=== PATIENT | male | born 1945 | race Caucasian/White ===

== ENCOUNTER → 2016-11-28 | Day surgery (SDC) | payer MEDICARE, OTHER ==
[~2016-11-28] VITALS: Ht 182.9 cm; Wt 181.9 kg
[~2016-11-28] MED LIST: CLARITIN10 MG PO; FENOFIBRATE145 MG PO; HYDRALAZINE HCL25 MG PO; HYDROCHLOROTH12.5 MG PO; LISINOPRIL40 MG PO; METFORMIN HCL1000 MG PO; METOPROLOL TAR100 MG PO; TOPAMAX50 MG PO; VIT D PO; ZYLOPRIM 100 M100 MG PO
== END | disposition home or self-care (01) ==
LOC: OR 07:56
PROVIDERS: Internal Medicine Gastroenterology
PROC: 0DBM8ZX Excision of Descending Colon, Via Natural or Artificial Opening Endoscopic, Diagnostic (ICD-10-PCS; 2016-11-28)
PROC: 0DBL8ZX Excision of Transverse Colon, Via Natural or Artificial Opening Endoscopic, Diagnostic (ICD-10-PCS; principal; 2016-11-28 12:00)
DX: Z12.11 Encounter for screening for malignant neoplasm of colon (principal); K63.5 Polyp of colon; K57.30 Diverticulosis of large intestine without perforation or abscess without bleeding; K64.0 First degree hemorrhoids; K64.4 Residual hemorrhoidal skin tags; E11.9 Type 2 diabetes mellitus without complications; I10 Essential (primary) hypertension; I25.10 Atherosclerotic heart disease of native coronary artery without angina pectoris; J44.9 Chronic obstructive pulmonary disease, unspecified; G47.30 Sleep apnea, unspecified; E78.5 Hyperlipidemia, unspecified; E66.01 Morbid (severe) obesity due to excess calories; M19.90 Unspecified osteoarthritis, unspecified site; Z68.43 Body mass index [BMI] 50.0-59.9, adult; Z85.828 Personal history of other malignant neoplasm of skin; Z87.891 Personal history of nicotine dependence; Z79.84 Long term (current) use of oral hypoglycemic drugs; Z79.899 Other long term (current) drug therapy; Z98.890 Other specified postprocedural states
CPT/HCPCS: 82962; J2250; J7030

== ENCOUNTER 2020-11-05 13:44 | Inpatient (IN) | payer MEDICARE, MEDICAID ==
[~2020-11-05] VITALS: Ht 152.4 cm; Wt 197.3 kg
[~2020-11-05 13:44] MED LIST changes: +BACTROBAN OINT22 GM EXT; +BACTROBAN OINT22 GM TOP; +GLUCOPHAGE500 MG PO; +IMDUR ER TAB 3030 MG PO; +ISORDIL TAB 3030 MG PO; +LASIX40 MG PO; +LOTRIMIN CREAM15 GM TOP; +NORVASC 5 MG TAB5 MG PO; +POTASSIUM CHLO20 ME2 PO; +VITAMIN D250000 UNIT PO; +VITAMIN D5000 UNIT PO; +VOLTAREN EC 7575 MG PO
[2020-11-05 14:39] LABS: HEMOGLOBIN 17.2 gm/dl (14.0-17.5); RED BLOOD COUNT 6.02 M/UL (4.20-5.50); WHITE BLOOD COUNT 7.4 K/UL (4.5-11.0)
[2020-11-05] MEDS ORDERED: VITAMIN D21250 MCG PO (20:34)
[2020-11-05] MEDS ORDERED: VITAMIN D3125 MC1 PO (20:34)
[2020-11-06 02:48] LABS: HEMOGLOBIN 16.2 gm/dl (14.0-17.5); RED BLOOD COUNT 5.77 M/UL (4.20-5.50); WHITE BLOOD COUNT 5.9 K/UL (4.5-11.0)
[2020-11-06 02:54] LABS: BUN/CREATININE RATIO 20 (0-10)
[2020-11-08 05:30] LABS: BUN/CREATININE RATIO 23 (0-10)
[2020-11-08] MEDS ORDERED: MULTAQ 400 MG400 MG PO (09:41)
[2020-11-08] MEDS ORDERED: ELIQUIS 5 MG TAB5 MG PO (09:41)
[2020-11-08] MEDS ORDERED: ELIQUIS5 MG PO (10:11)
== END 2020-11-08 15:50 | disposition home or self-care (01) | DRG 308 ==
LOC: ER1 13:44 → CDU 16:29 → PROG CARE 16:29
PROVIDERS: Emergency Medicine; Internal Medicine Infectious Disease; ADMIT Internal Medicine
PROC: B24BZZ4 Ultrasonography of Heart with Aorta, Transesophageal (ICD-10-PCS; principal; 2020-11-06)
PROC: 5A2204Z Restoration of Cardiac Rhythm, Single (ICD-10-PCS; 2020-11-06)
DX: I48.0 Paroxysmal atrial fibrillation (principal); I50.33 Acute on chronic diastolic (congestive) heart failure; Z68.43 Body mass index [BMI] 50.0-59.9, adult; E66.01 Morbid (severe) obesity due to excess calories; G47.33 Obstructive sleep apnea (adult) (pediatric); I44.7 Left bundle-branch block, unspecified; J44.9 Chronic obstructive pulmonary disease, unspecified; E11.9 Type 2 diabetes mellitus without complications; E78.5 Hyperlipidemia, unspecified; Z20.822 Contact with and (suspected) exposure to COVID-19; R53.81 Other malaise; I08.1 Rheumatic disorders of both mitral and tricuspid valves; I11.0 Hypertensive heart disease with heart failure; G89.29 Other chronic pain; Z91.19 Patient's noncompliance with other medical treatment and regimen; Z79.01 Long term (current) use of anticoagulants; Z79.82 Long term (current) use of aspirin; Z85.828 Personal history of other malignant neoplasm of skin; Z82.49 Family history of ischemic heart disease and other diseases of the circulatory system; Z83.3 Family history of diabetes mellitus; Z80.9 Family history of malignant neoplasm, unspecified; Z82.3 Family history of stroke; Z98.84 Bariatric surgery status; Z87.891 Personal history of nicotine dependence
CPT/HCPCS: 36415; 70450; 71045; 80048; 80053; 82550; 82553; 83690; 83735; 83874; 83880; 84439; 84443; 84484; 85025; 85610; 85730; 93005; 93312; 93320; 96374; 96376; 99285; G0480; J1200; J1650; J2250; J3010; U0002

== ENCOUNTER → 2020-12-01 | Outpatient (CLI) | payer MEDICARE ==
[~2020-12-01] MED LIST changes: +ELIQUIS 5 MG TAB5 MG PO; +ELIQUIS5 MG PO; +MULTAQ 400 MG400 MG PO; +VITAMIN D21250 MCG PO; +VITAMIN D3125 MC1 PO
== END ==
LOC: RAD 15:57
DX: R91.8 Other nonspecific abnormal finding of lung field (principal)
CPT/HCPCS: 71046

== ENCOUNTER 2021-01-20 16:36 | Inpatient (IN) | payer MEDICARE, MEDICAID ==
[~2021-01-20] VITALS: Ht 182.9 cm; Wt 192.9 kg
[~2021-01-20 16:36] MED LIST changes: +CEPHALEXIN500 MG PO; +CIPRO500 MG PO; -VITAMIN D5000 UNIT PO
[2021-01-20 17:52] LABS: HEMOGLOBIN 14.4 gm/dl (14.0-17.5); RED BLOOD COUNT 5.36 M/UL (4.20-5.50)
[2021-01-20 18:03] LABS: BUN/CREATININE RATIO 21 (0-10)
[2021-01-21] MEDS ORDERED: VITAMIN D21250 MCG PO (10:19)
[2021-01-21] MEDS ORDERED: VOLTAREN EC 7575 MG PO (16:09)
[2021-01-21] MEDS ORDERED: VENTOLIN HFA 66.7 GM INH (16:09)
[2021-01-21] MEDS ORDERED: POTASSIUM CHLO10 MEQ PO (16:10)
[2021-01-21] MEDS ORDERED: MUPIROCIN22 GM TOP (16:15)
[2021-01-22 06:18] LABS: HEMOGLOBIN 14.6 gm/dl (14.0-17.5); RED BLOOD COUNT 5.6 M/UL (4.20-5.50); WHITE BLOOD COUNT 7.4 K/UL (4.5-11.0)
[2021-01-22 06:31] LABS: BUN/CREATININE RATIO 19 (0-10)
[2021-01-23 03:02] LABS: HEMOGLOBIN 14.9 gm/dl (14.0-17.5); RED BLOOD COUNT 5.36 M/UL (4.20-5.50)
[2021-01-23 03:24] LABS: BUN/CREATININE RATIO 18 (0-10)
[2021-01-24 03:19] LABS: HEMOGLOBIN 15.4 gm/dl (14.0-17.5); RED BLOOD COUNT 5.52 M/UL (4.20-5.50); WHITE BLOOD COUNT 8.7 K/UL (4.5-11.0)
[2021-01-24 03:49] LABS: BUN/CREATININE RATIO 20 (0-10)
[2021-01-24] MEDS ORDERED: IPRAT-ALBUT 0.5-3 ML NEB (09:34)
[2021-01-24] MEDS ORDERED: BUDESONIDE0.5 MG/2 M NEB (09:34)
[2021-01-24] MEDS ORDERED: DIAMOX 250 MG250 MG PO (09:34)
[2021-01-24] MEDS ORDERED: LOPRESSOR 25 MG25 MG PO (09:34)
[2021-01-24] MEDS ORDERED: LISINOPRIL40 MG PO (09:49)
== END 2021-01-24 14:34 | disposition home or self-care (01) | DRG 291 ==
LOC: ER1 16:36 → CDU 01-21 01:10 → PROG CARE 01-21 01:10
PROVIDERS: Internal Medicine; Physician Assistant; ADMIT Internal Medicine
DX: I11.0 Hypertensive heart disease with heart failure (principal); J96.21 Acute and chronic respiratory failure with hypoxia; J96.22 Acute and chronic respiratory failure with hypercapnia; J44.1 Chronic obstructive pulmonary disease with (acute) exacerbation; Z68.43 Body mass index [BMI] 50.0-59.9, adult; Z20.822 Contact with and (suspected) exposure to COVID-19; I50.23 Acute on chronic systolic (congestive) heart failure; E78.5 Hyperlipidemia, unspecified; E66.01 Morbid (severe) obesity due to excess calories; I44.7 Left bundle-branch block, unspecified; E11.9 Type 2 diabetes mellitus without complications; G89.29 Other chronic pain; F17.210 Nicotine dependence, cigarettes, uncomplicated; M10.9 Gout, unspecified; E55.9 Vitamin D deficiency, unspecified; G47.33 Obstructive sleep apnea (adult) (pediatric); I48.91 Unspecified atrial fibrillation; Z79.01 Long term (current) use of anticoagulants; Z98.84 Bariatric surgery status; Z85.828 Personal history of other malignant neoplasm of skin
CPT/HCPCS: 36415; 36600; 71045; 80048; 80053; 81001; 82550; 82553; 82803; 82962; 83735; 83874; 83880; 84439; 84443; 84484; 85025; 85027; 86140; 93005; 94640; 94660; 94664; 94760; 96374; 99285; J1120; J1940; J1956; J2185; U0002

== ENCOUNTER → 2021-02-09 | Outpatient (CLI) | payer MEDICARE ==
[~2021-02-09] MED LIST changes: +BUDESONIDE0.5 MG/2 M NEB; +DIAMOX 250 MG250 MG PO; +IPRAT-ALBUT 0.5-3 ML NEB; +LOPRESSOR 25 MG25 MG PO; +MUPIROCIN22 GM TOP; +POTASSIUM CHLO10 MEQ PO; +VENTOLIN HFA 66.7 GM INH
== END ==
LOC: RAD 12:51
DX: I50.30 Unspecified diastolic (congestive) heart failure (principal)
CPT/HCPCS: 71046

== ENCOUNTER → 2021-02-09 | Outpatient (CLI) | payer MEDICARE | LOC: EXRD 10:51 | DX: R07.9 Chest pain, unspecified (principal); J40 Bronchitis, not specified as acute or chronic | CPT/HCPCS: 94060; 94729 ==

== ENCOUNTER → 2021-02-12 | Outpatient (CLI) | payer MEDICARE | LOC: RT 15:07 | DX: I50.30 Unspecified diastolic (congestive) heart failure (principal); J96.92 Respiratory failure, unspecified with hypercapnia | CPT/HCPCS: 36600; 82803 ==

== ENCOUNTER → 2021-05-02 | Outpatient (CLI) | payer MEDICARE | LOC: KOH-I 13:17 | DX: Z79.891 Long term (current) use of opiate analgesic (principal); J44.9 Chronic obstructive pulmonary disease, unspecified | CPT/HCPCS: 71271 ==

== ENCOUNTER → 2021-05-03 | Outpatient (CLI) | payer OTHER, MEDICARE | LOC: EXRD 05-01 08:30 | DX: M81.0 Age-related osteoporosis without current pathological fracture (principal) | CPT/HCPCS: 77080 ==

== ENCOUNTER → 2021-05-07 | Outpatient (CLI) | payer MEDICARE, OTHER ==
[2021-05-07 13:49] LABS: HEMOGLOBIN 15.5 gm/dl (14.0-17.5); RED BLOOD COUNT 5.59 M/UL (4.20-5.50); WHITE BLOOD COUNT 8.1 K/UL (4.5-11.0)
[2021-05-07 14:33] LABS: BUN/CREATININE RATIO 21 (0-10)
== END ==
LOC: LAB 13:22
PROVIDERS: Family Medicine
DX: Z12.5 Encounter for screening for malignant neoplasm of prostate (principal); E11.9 Type 2 diabetes mellitus without complications; E78.5 Hyperlipidemia, unspecified; I10 Essential (primary) hypertension; E03.9 Hypothyroidism, unspecified; E55.9 Vitamin D deficiency, unspecified
CPT/HCPCS: 36415; 80053; 80061; 84439; 84443; 85027; G0103

== ENCOUNTER → 2021-07-23 | Outpatient (CLI) | payer MEDICARE, OTHER ==
[~2021-07-23] MED LIST changes: +ACTONEL35 MG PO; +ANORO ELLIPTA1 EACH INH; +FLOMAX0.4 MG PO; +GLUCOPHAGE 500500 MG PO; +KLOR-CON M1010 MEQ PO; +NITROSTAT 0.40.4 MG SL; +SINGULAIR10 MG PO; +SYNTHROID25 MCG PO; +VENTOLIN/PROVE0.5 ML INH
[2021-07-23 14:45] LABS: HEMOGLOBIN 14.6 gm/dl (14.0-17.5); RED BLOOD COUNT 5.24 M/UL (4.20-5.50); WHITE BLOOD COUNT 6.9 K/UL (4.5-11.0)
[2021-07-23 15:04] LABS: BUN/CREATININE RATIO 19 (0-10)
== END ==
LOC: LAB 13:15
PROVIDERS: Physician Assistant
DX: Z13.9 Encounter for screening, unspecified (principal)
CPT/HCPCS: 36415; 80048; 85025

== ENCOUNTER → 2021-07-25 | Outpatient (CLI) | payer MEDICARE | LOC: CATH 06:51 | DX: I48.19 Other persistent atrial fibrillation (principal); I11.0 Hypertensive heart disease with heart failure; I50.32 Chronic diastolic (congestive) heart failure; E66.01 Morbid (severe) obesity due to excess calories; I25.10 Atherosclerotic heart disease of native coronary artery without angina pectoris; E11.9 Type 2 diabetes mellitus without complications; Z87.891 Personal history of nicotine dependence; E03.9 Hypothyroidism, unspecified; K21.9 Gastro-esophageal reflux disease without esophagitis; E78.00 Pure hypercholesterolemia, unspecified; M81.0 Age-related osteoporosis without current pathological fracture; G47.33 Obstructive sleep apnea (adult) (pediatric); J44.9 Chronic obstructive pulmonary disease, unspecified; Z68.43 Body mass index [BMI] 50.0-59.9, adult; I44.7 Left bundle-branch block, unspecified; Z79.84 Long term (current) use of oral hypoglycemic drugs; Z79.01 Long term (current) use of anticoagulants; Z20.822 Contact with and (suspected) exposure to COVID-19 | CPT/HCPCS: 92960; 93005; J1200; J1742; J2250; J2310; J3010; J7040 ==

== ENCOUNTER 2021-10-05 17:22 | Emergency (ER) | payer OTHER ==
[2021-10-05] MEDS ORDERED: ERYTHROMYCIN OP1 GM OD (20:31)
[2021-10-05] MEDS ORDERED: IBU600 MG PO (20:32)
== END 2021-10-05 20:50 | disposition home or self-care (01) ==
LOC: ER1 17:22
DX: S93.401A Sprain of unspecified ligament of right ankle, initial encounter (principal); H10.9 Unspecified conjunctivitis; I11.9 Hypertensive heart disease without heart failure; E11.9 Type 2 diabetes mellitus without complications; X50.9XXA Other and unspecified overexertion or strenuous movements or postures, initial encounter; Y92.009 Unspecified place in unspecified non-institutional (private) residence as the place of occurrence of the external cause
CPT/HCPCS: 73610; 99283

== ENCOUNTER → 2021-11-15 | Outpatient (CLI) | payer OTHER ==
[~2021-11-15] MED LIST changes: +ERYTHROMYCIN OP1 GM OD; +IBU600 MG PO
== END ==
LOC: KOH-I 14:31
DX: S82.891A Other fracture of right lower leg, initial encounter for closed fracture (principal); M19.071 Primary osteoarthritis, right ankle and foot
CPT/HCPCS: 73610

== ENCOUNTER → 2021-12-12 | Outpatient (CLI) | payer OTHER | LOC: EXRD 10:16 | DX: J20.9 Acute bronchitis, unspecified (principal); R91.8 Other nonspecific abnormal finding of lung field | CPT/HCPCS: 71046 ==

== ENCOUNTER → 2021-12-24 | Outpatient (CLI) | payer OTHER, MEDICARE | LOC: EXRD 14:45 | DX: J18.9 Pneumonia, unspecified organism (principal); R91.8 Other nonspecific abnormal finding of lung field | CPT/HCPCS: 71046 ==

== ENCOUNTER 2022-02-26 21:51 | Inpatient (IN) | payer OTHER ==
[~2022-02-26] VITALS: Ht 185.4 cm; Wt 168.7 kg
[~2022-02-26 21:51] MED LIST changes: -IMDUR ER TAB 3030 MG PO; +ISOSORBIDE MONO30 MG PO
[2022-02-26 22:38] LABS: HEMOGLOBIN 13.9 gm/dl (14.0-17.5); RED BLOOD COUNT 5.14 M/UL (4.20-5.50); WHITE BLOOD COUNT 7.9 K/UL (4.5-11.0)
[2022-02-26 23:00] LABS: BUN/CREATININE RATIO 17 (0-10)
[2022-02-27] MEDS ORDERED: ELIQUIS5 MG PO (08:14)
[2022-02-27] MEDS ORDERED: DIAMOX 250 MG250 MG PO (10:54)
[2022-02-27] MEDS ORDERED: VITAMIN D325 MCG PO (10:59)
[2022-02-27] MEDS ORDERED: METOPROLOL TART25 MG PO (11:00)
[2022-02-27] MEDS ORDERED: PROVENTIL HFA6.7 GM INH (11:02)
[2022-02-27] MEDS ORDERED: FUROSEMIDE40 MG PO (11:03)
[2022-02-27] MEDS ORDERED: WIXELA 250-501 EACH INH (11:03)
--- NOTE | 2022-02-27 14:18 | NUR ---
RADIOLOGY DEPARTMENT HANDED ME A VIAL OF DEFINITY 1.5mL TO SCAN OFF OF MY MAR. RADIOLOGY PUSHED MEDICATION FOR ECHO PROCEDURE.
[2022-02-28 05:52] LABS: HEMOGLOBIN 14.1 gm/dl (14.0-17.5); RED BLOOD COUNT 5.27 M/UL (4.20-5.50); WHITE BLOOD COUNT 8.7 K/UL (4.5-11.0)
[2022-02-28 06:04] LABS: BUN/CREATININE RATIO 21 (0-10)
[2022-03-01 06:37] LABS: HEMOGLOBIN 13.9 gm/dl (14.0-17.5); RED BLOOD COUNT 5.41 M/UL (4.20-5.50); WHITE BLOOD COUNT 7.9 K/UL (4.5-11.0)
--- NOTE | 2022-03-01 15:39 | NUR ---
1400: ROOM AIR OXYGEN SATURATION NOTED AT 87%. PLACED OXYGEN ON AT 2 LPM
[2022-03-02 06:37] LABS: BUN/CREATININE RATIO 24 (0-10)
[2022-03-04] MEDS ORDERED: NITROGLYCERIN0.4 MG SL ×2 (09:14→09:20)
[2022-03-04] MEDS ORDERED: MONTELUKAST SOD10 MG PO (09:14)
[2022-03-04] MEDS ORDERED: ALDACTONE 25MG25 MG PO (09:14)
[2022-03-04] MEDS ORDERED: LOPRESSOR 50 MG50 MG PO (09:14)
== END 2022-03-04 13:29 | disposition home or self-care (01) | DRG 291 ==
LOC: ER1 21:51 → MED SURG 4 23:35 → CDU 23:35 → MED SURG 4 02-27 01:10
PROVIDERS: Internal Medicine; Physician Assistant; ADMIT Family Medicine
PROC: 5A09357 Assistance with Respiratory Ventilation, Less than 24 Consecutive Hours, Continuous Positive Airway Pressure (ICD-10-PCS; 2022-02-27)
PROC: B24BZZZ Ultrasonography of Heart with Aorta (ICD-10-PCS; principal; 2022-02-28)
PROC: 5A09357 Assistance with Respiratory Ventilation, Less than 24 Consecutive Hours, Continuous Positive Airway Pressure (ICD-10-PCS; 2022-02-28)
PROC: 5A09357 Assistance with Respiratory Ventilation, Less than 24 Consecutive Hours, Continuous Positive Airway Pressure (ICD-10-PCS; 2022-03-01)
PROC: 5A09357 Assistance with Respiratory Ventilation, Less than 24 Consecutive Hours, Continuous Positive Airway Pressure (ICD-10-PCS; 2022-03-02)
DX: I13.0 Hypertensive heart and chronic kidney disease with heart failure and stage 1 through stage 4 chronic kidney disease, or unspecified chronic kidney disease (principal); I50.33 Acute on chronic diastolic (congestive) heart failure; J96.22 Acute and chronic respiratory failure with hypercapnia; J96.21 Acute and chronic respiratory failure with hypoxia; E66.2 Morbid (severe) obesity with alveolar hypoventilation; I48.20 Chronic atrial fibrillation, unspecified; Z68.43 Body mass index [BMI] 50.0-59.9, adult; J44.9 Chronic obstructive pulmonary disease, unspecified; E78.5 Hyperlipidemia, unspecified; I48.91 Unspecified atrial fibrillation; M10.9 Gout, unspecified; I44.7 Left bundle-branch block, unspecified; E03.9 Hypothyroidism, unspecified; E11.22 Type 2 diabetes mellitus with diabetic chronic kidney disease; E55.9 Vitamin D deficiency, unspecified; G89.29 Other chronic pain; N18.30 Chronic kidney disease, stage 3 unspecified; M54.50 Low back pain, unspecified; N40.0 Benign prostatic hyperplasia without lower urinary tract symptoms; Z85.828 Personal history of other malignant neoplasm of skin; Z79.84 Long term (current) use of oral hypoglycemic drugs; Z90.89 Acquired absence of other organs; Z98.890 Other specified postprocedural states; Z79.01 Long term (current) use of anticoagulants; Z79.899 Other long term (current) drug therapy; Z87.891 Personal history of nicotine dependence
CPT/HCPCS: 36415; 36600; 71045; 80048; 80053; 81001; 82550; 82553; 82803; 82962; 83036; 83735; 83880; 84439; 84443; 84484; 85025; 85027; 85379; 85610; 85730; 93005; 94640; 94660; 94760; 96374; 97161; 97530; 99285; C9113; G0378; J1120; J1940; J2930; Q9957; U0002

== ENCOUNTER 2022-03-05 12:46 | Inpatient (IN) | payer OTHER ==
[~2022-03-05] VITALS: Ht 182.9 cm; Wt 169.9 kg
[~2022-03-05 12:46] MED LIST changes: +ALDACTONE 25MG25 MG PO; +FUROSEMIDE40 MG PO; +LOPRESSOR 50 MG50 MG PO; +METOPROLOL TART25 MG PO; +MONTELUKAST SOD10 MG PO; +NITROGLYCERIN0.4 MG SL; +PROVENTIL HFA6.7 GM INH; +VITAMIN D325 MCG PO; +WIXELA 250-501 EACH INH
[2022-03-05 15:51] LABS: RED BLOOD COUNT 5.98 M/UL (4.20-5.50); WHITE BLOOD COUNT 10.7 K/UL (4.5-11.0)
[2022-03-05 15:52] LABS: HEMOGLOBIN 16.2 gm/dl (14.0-17.5)
[2022-03-06 07:35] LABS: HEMOGLOBIN 15.4 gm/dl (14.0-17.5); RED BLOOD COUNT 5.8 M/UL (4.20-5.50); WHITE BLOOD COUNT 8.8 K/UL (4.5-11.0)
[2022-03-07 03:00] LABS: HEMOGLOBIN 15.3 gm/dl (14.0-17.5); RED BLOOD COUNT 5.69 M/UL (4.20-5.50); WHITE BLOOD COUNT 8.6 K/UL (4.5-11.0)
[2022-03-08 03:30] LABS: HEMOGLOBIN 15.1 gm/dl (14.0-17.5); RED BLOOD COUNT 5.7 M/UL (4.20-5.50); WHITE BLOOD COUNT 7.3 K/UL (4.5-11.0)
[2022-03-08 04:05] LABS: BUN/CREATININE RATIO 31 (0-10)
--- NOTE | 2022-03-08 17:00 | NUR ---
PT SATING 90% ON ROOM AIR WEARS O2 AT HOME BUT ONLY AT NIGHT
[2022-03-09 02:49] LABS: HEMOGLOBIN 15.5 gm/dl (14.0-17.5); RED BLOOD COUNT 5.76 M/UL (4.20-5.50)
[2022-03-09 03:07] LABS: BUN/CREATININE RATIO 27 (0-10)
[2022-03-10 02:32] LABS: HEMOGLOBIN 15.7 gm/dl (14.0-17.5); RED BLOOD COUNT 5.82 M/UL (4.20-5.50); WHITE BLOOD COUNT 8.1 K/UL (4.5-11.0)
[2022-03-10 03:04] LABS: BUN/CREATININE RATIO 26 (0-10)
[2022-03-10] MEDS ORDERED: LOPRESSOR 25 MG25 MG PO (11:10)
== END 2022-03-10 14:30 | disposition home or self-care (01) | DRG 682 ==
LOC: ER1 12:46 → CDU 16:03 → M/S 16:03
PROVIDERS: Internal Medicine; Physician Assistant; Physician Assistant Medical; ADMIT Internal Medicine
DX: N17.9 Acute kidney failure, unspecified (principal); I50.33 Acute on chronic diastolic (congestive) heart failure; E66.2 Morbid (severe) obesity with alveolar hypoventilation; I13.0 Hypertensive heart and chronic kidney disease with heart failure and stage 1 through stage 4 chronic kidney disease, or unspecified chronic kidney disease; J96.11 Chronic respiratory failure with hypoxia; I48.19 Other persistent atrial fibrillation; Z68.42 Body mass index [BMI] 45.0-49.9, adult; N18.30 Chronic kidney disease, stage 3 unspecified; J44.9 Chronic obstructive pulmonary disease, unspecified; E11.22 Type 2 diabetes mellitus with diabetic chronic kidney disease; E78.5 Hyperlipidemia, unspecified; N40.0 Benign prostatic hyperplasia without lower urinary tract symptoms; E03.9 Hypothyroidism, unspecified; I95.9 Hypotension, unspecified; I44.7 Left bundle-branch block, unspecified; M10.9 Gout, unspecified; Z98.890 Other specified postprocedural states; Z79.899 Other long term (current) drug therapy; Z79.01 Long term (current) use of anticoagulants; Z87.891 Personal history of nicotine dependence; Z82.49 Family history of ischemic heart disease and other diseases of the circulatory system; Z91.14 Patient's other noncompliance with medication regimen
CPT/HCPCS: 36415; 36600; 71045; 71046; 80048; 80053; 82550; 82553; 82803; 82962; 83605; 83735; 83880; 84484; 85025; 85027; 87040; 93005; 94640; 94664; 94760; 97162; 99285; G0378